=== PATIENT | female | born 1995 | race African-American/Black ===

== ENCOUNTER 2019-01-10 04:06 | Emergency (ER) | payer MEDICAID ==
[~2019-01-10] VITALS: Ht 172.7 cm; Wt 52.3 kg
[2019-01-10 04:34] LABS: BASO # 0.1 10^3/uL (0.0-0.2); BASO % 0.5 % (0.0-1.0); EOS % 0.1 % (0.0-3.0); HEMOGLOBIN 12.3 g/dl (12.0-15.5); LYMPH # 2.1 10^3/uL (1.5-6.5); MEAN CORPUSCULAR HEMOGLOBIN 28.8 pg (27.0-33.0); MEAN CORPUSCULAR HGB CONC 36.2 g/dl (32.0-36.5); MEAN CORPUSCULAR VOLUME 79.6 fl (80.0-96.0); MONO # 0.5 10^3/uL (0.0-0.8); NEUTROPHILS # 13.6 10^3/uL (1.8-7.7); PLATELET COUNT, AUTOMATED 376 10^3/uL (150-450); RED BLOOD COUNT 4.27 10^6/uL (4.00-5.40); WHITE BLOOD COUNT 16.4 10^3/uL (4.0-10.0)
[2019-01-10] MEDS ORDERED: MORPHINE 4 MG/ML 1ML VIAL/SYRINGE (J2270) IV PRN (05:15)
[2019-01-10] MEDS ORDERED: ONDANSETRON 4MG/2ML VIAL (J2405) IV ONE (05:15)
[2019-01-10 05:19] LABS: ALBUMIN 3.9 GM/DL (3.2-5.2); ALT/SGPT 25 U/L (12-78); BILIRUBIN,TOTAL 0.5 MG/DL (0.2-1.0); BLOOD UREA NITROGEN 7 MG/DL (7-18); CALCIUM LEVEL 9.3 MG/DL (8.5-10.1); CARBON DIOXIDE LEVEL 22 MEQ/L (21-32); CHLORIDE LEVEL 106 MEQ/L (98-107); CREATININE FOR GFR 0.68 MG/DL (0.55-1.30); GLOMERULAR FILTRATION RATE > 60.0 (>60); GLUCOSE, FASTING 126 MG/DL (70-100); HCG, SERUM QUANTITATIVE 3142 MIU/ML; POTASSIUM SERUM 4.2 MEQ/L (3.5-5.1); SODIUM LEVEL 139 MEQ/L (136-145); TOTAL PROTEIN 7.6 GM/DL (6.4-8.2)
[2019-01-10 06:45] VITALS: BP 106/56
[2019-01-10] MEDS ORDERED: NORCO 5/325MG TABLET (BULK FOR ED) PO ONE (06:45)
--- NOTE | 2019-01-10 07:10 | REPVR ---
EXAM: US First Trimester, Transabdominal EXAM DATE/TIME: 01/10/2019 4:53 AM CLINICAL HISTORY: 23 years old, female; complicated by abdominal or pelvic pain; Lower; First trimester; Gestational age or lmp: 10/27/18; ; Additional info: Abd pain, R/O ectopic TECHNIQUE: Imaging protocol: Real-time transabdominal obstetrical ultrasound of the maternal pelvis and a first trimester , less than 14 weeks 0 days, with image documentation. COMPARISON: No relevant prior studies available. FINDINGS: Uterus: Thickened heterogeneous endometrium measuring 20.1 mm. Uterus measured 10.5 x 4.5 x 6.4 cm. Cervix: Irregular gestational sac is seen in the cervix measuring 14.5 mm corresponding with 6 weeks 2 days of with MELIDA of 09/03/19. No pole or yolk sac is seen. Right adnexa: Right ovary measures 4.0 x 2.6 x 2.3 cm . cyst in the right ovary measuring 2.0 x 2.2 x 1.0 cm. normal vascular flow. Left adnexa: Left ovary is unremarkable measuring 3.3 x 2.1 x 2.4 cm. normal vascular flow. Intraperitoneal: No free fluid. IMPRESSION: Irregular gestational sac is seen in the cervix measuring 14.5 mm corresponding with 6 weeks 2 days of with MELIDA of 09/03/19. No pole or yolk sac is seen. Thickened heterogeneous endometrium measuring 20.1 mm. Cyst in the right ovary measuring 2.0 x 2.2 x 1.0 cm. Electronically signed by: Lucina Zacarias On 01/10/2019 07:10:18 AM
== END 2019-01-10 06:55 | disposition home or self-care (01) ==
LOC: M ED 04:06
DX: O03.4 Incomplete spontaneous abortion without complication (principal)
CPT/HCPCS: 76801; 76817; 80053; 84702; 85025; 86850; 86900; 86901; 93976; 96374; 96375; 99284; J2270; J2405